=== PATIENT | male | born 1990 | race Caucasian/White ===

== ENCOUNTER 2017-10-24 15:50 | Emergency (ER) | payer MEDICAID, OTHER ==
[~2017-10-24] VITALS: Ht 177.8 cm; Wt 75.0 kg
[2017-10-24] MEDS ORDERED: normal saline 1000ML IV soln IVB ONE (17:30)
[2017-10-24] MEDS ORDERED: ondansetron/PF 4mg/2ml inj IV ONE (17:30)
[2017-10-24] MEDS ORDERED: morphine 4 MG/ML inj SYRINge IV ONE (17:30)
[2017-10-24] MEDS ORDERED: ketorolac tromethamine 15mg/ml inj. IV ONE (17:30)
[2017-10-24] MEDS ORDERED: clindamycin 600mg/D5W 50ml 50 ML IV ONE (17:40)
[2017-10-24] MEDS ORDERED: iohexol 300mg/ml 100ml inj. ONE (17:54)
[2017-10-24 17:59] LABS: BASOPHILS % (AUTO) 0.5 % (0-1); EOSINOPHILS # (AUTO) 0.2 X10'3 (0-0.9); EOSINOPHILS % (AUTO) 2.5 % (0-6); HEMATOCRIT 50.5 % (42.0-52.0); HEMOGLOBIN 17.2 g/dl (14.0-17.9); LYMPHOCYTES # (AUTO) 1.7 X10'3 (1.1-4.8); MEAN CORPUSCULAR HEMOGLOBIN 31.6 PG (27.0-31.0); MEAN CORPUSCULAR VOLUME 92.9 FL (78-98); MEAN PLATELET VOLUME 7.8 FL (7.4-10.4); MONOCYTES # (AUTO) 0.7 X10'3 (0-0.9); MONOCYTES % (AUTO) 7.1 % (2-12); NEUTROPHILS # (AUTO) 6.6 X10'3 (1.8-7.7); NEUTROPHILS % (AUTO) 71.9 % (42-75); PLATELET COUNT 306 X10'3 (140-440); RED BLOOD COUNT 5.44 X10'6 (4.70-6.10); RED CELL DISTRIBUTION WIDTH 13.7 % (11.5-14.5); WHITE BLOOD COUNT 9.2 X10'3 (4.5-11.0)
[2017-10-24 18:09] LABS: INR 0.9 INR; PARTIAL THROMBOPLASTIN TIME 29 SECONDS (22-32); PROTHROMBIN TIME 9.5 SECONDS (9.0-12.0)
[2017-10-24 18:15] LABS: ALANINE AMINOTRANSFERASE 60 U/L (12-78); ALBUMIN 4.2 G/DL (3.4-5.0); ALBUMIN/GLOBULIN RATIO 0.9 (1.1-1.5); ALKALINE PHOSPHATASE 106 IU/L (46-116); ANION GAP 10 (8-16); ASPARTATE AMINO TRANSFERASE 29 U/L (10-37); BILIRUBIN,TOTAL 0.2 MG/DL (0.1-1.0); BLOOD UREA NITROGEN 15 MG/DL (7-18); BUN/CREATININE RATIO 12.1 (5.4-32.0); CALCIUM 9.4 MG/DL (8.5-10.1); CHLORIDE 102 MMOL/L (99-107); CREATININE 1.24 MG/DL (0.60-1.10); GLUCOSE 85 MG/DL (70-104); POTASSIUM 3.9 MMOL/L (3.5-5.1); SODIUM 141 MMOL/L (135-145); TOTAL CARBON DIOXIDE 29.4 MMOL/L (24-32); eGFR 70 ML/MIN
[2017-10-24] MEDS ORDERED: dexamethasone sod phosphate 10mg/ml inj PO STA (19:27)
[2017-10-24] MEDS ORDERED: ondansetron 4mg rapidly disintigrating tab PO ONE (19:30)
[2017-10-24] MEDS ORDERED: CEPH-572 PO (19:43)
[2017-10-24] MEDS ORDERED: HYDR-569 PO (19:43)
[2017-10-24] MEDS ORDERED: ONDA8TAB9 PO (19:43)
[2017-10-24] MEDS ORDERED: DOXY100C43 PO (19:43)
[2017-10-24 20:03] VITALS: BP 134/94
== END 2017-10-24 20:09 | disposition home or self-care (01) ==
LOC: ER 15:52
DX: L03.211 Cellulitis of face (principal); R13.10 Dysphagia, unspecified; R06.02 Shortness of breath; Z79.899 Other long term (current) drug therapy
CPT/HCPCS: 36415; 70491; 80053; 83605; 84145; 85025; 85610; 85730; 87040; 96365; 96375; 99285; J1100; J1885; J2270; J2405; J3490; J7030; Q9967

== ENCOUNTER 2018-02-09 05:29 | Emergency (ER) | payer MEDICAID, OTHER ==
[~2018-02-09] VITALS: Ht 175.3 cm; Wt 80.7 kg
[~2018-02-09 05:29] MED LIST: HYDR-569 PO; ONDA8TAB9 PO
[2018-02-09 06:02] VITALS: BP 154/103
[2018-02-09] MEDS ORDERED: acetaminophen 325mg tablet PO ONE (07:20)
[2018-02-09] MEDS ORDERED: ibuprofen tablet 400 MG TABLET PO ONE (07:45)
== END 2018-02-09 07:50 | disposition left against medical advice (07) ==
LOC: ER 05:30
DX: S00.93XA Contusion of unspecified part of head, initial encounter (principal); S16.1XXA Strain of muscle, fascia and tendon at neck level, initial encounter; S63.601A Unspecified sprain of right thumb, initial encounter; M25.521 Pain in right elbow; W18.30XA Fall on same level, unspecified, initial encounter; Y93.89 Activity, other specified; Y92.89 Other specified places as the place of occurrence of the external cause; Y99.8 Other external cause status
CPT/HCPCS: 70450; 71046; 72125; 73080; 73130; 99284; L0172